=== PATIENT | male | born 1965 ===

== ENCOUNTER 2017-05-10 09:22 | Emergency (ER) | payer SELFPAY ==
[2017-05-10 09:28] VITALS: BP 118/74; PULSE 106; RESP 18; O2SAT 94
--- NOTE | 2017-05-10 10:02 | C.PDOC ---
History Of Present Illness 51 year old male presents to the emergency room complaining of dry non- productive cough, sore throat, and body aches for 4 days. No sick contacts. Patient denies fevers, chills, vomiting, or diarrhea. Not taking OTC flu/cold medicine due to concern for interference with his blood pressure medication. Time Seen by Provider: 05/10/17 09:57 Chief Complaint (Nursing): Flu-like Symptoms History Per: Patient History/Exam Limitations: no limitations Onset/Duration Of Symptoms: Days (x4) Current Symptoms Are (Timing): Still Present Sick Contacts (Context): None Past Medical History Reviewed: Historical Data, Nursing Documentation, Vital Signs Vital Signs: Last Vital Signs Temp 99.7 F H 05/10/17 10:23 Pulse 106 H 05/10/17 09:26 Resp 18 05/10/17 09:26 BP 118/74 05/10/17 09:26 Pulse Ox 94 L 05/10/17 11:10 - Medical History PMH: HTN, Sleep Apnea Surgical History: Appendectomy Family History: States: Unknown Family Hx - Social History Hx Alcohol Use: Yes Hx Substance Use: No - Immunization History Hx Tetanus Toxoid Vaccination: No Hx Influenza Vaccination: No Hx Pneumococcal Vaccination: No Review Of Systems Except As Marked, All Systems Reviewed And Found Negative. Constitutional: Positive for: Other (Body aches). Negative for: Fever, Chills ENT: Positive for: Throat Pain Respiratory: Positive for: Cough. Negative for: Shortness of Breath, Sputum Gastrointestinal: Negative for: Nausea, Vomiting, Diarrhea Physical Exam - Physical Exam Appears: Non-toxic, No Acute Distress, Other (Obese male) Skin: Normal Color, Warm, Dry Head: Atraumatic, Normacephalic Eye(s): bilateral: Normal Inspection, PERRL, EOMI Ear(s): Bilateral: Normal Nose: Normal Oral Mucosa: Moist Throat: Normal, No Erythema, No Exudate Neck: Normal ROM, Supple Chest: Symmetrical Cardiovascular: Rhythm Regular, No Murmur Respiratory: Normal Breath Sounds, No Rales, No Rhonchi, No Wheezing Extremity: Bilateral: Atraumatic, Normal Color And Temperature, Normal ROM Neurological/Psych: Oriented x3, Normal Speech ED Course And Treatment O2 Sat by Pulse Oximetry: 94 (RA) Medical Decision Making Medical Decision Making: Time: 9:31 Initial Plan: * Tylenol 975 mg PO Impression: viral syndrome, benign exam Dayquil/Nyquil educated. Pt is stable for d/c home Disposition Doctor Will See Patient In The: Office Counseled Patient/Family Regarding: Studies Performed, Diagnosis - Disposition Referrals: at [facility] [Outside] Disposition: HOME/ ROUTINE Disposition Time: 10:02 Condition: GOOD Additional Instructions: Dayquil o' Nyquil (o' equivalente) para las sintomas Sigue en la Clin[facility] Familiar adwoa necessario Instructions: Viral Syndrome (DC) Forms: [employer] (Angolan), Work Excuse Print Language: HAITIAN - POA Present On Arrival: None - Clinical Impression Clinical Impression: Influenza-like illness - Scribe Statement The provider has reviewed the documentation as recorded by the Estephaniaibedwardo Acosta Provider Attestation: All medical record entries made by the Estephaniaibedwardo were at my direction and personally dictated by me. I have reviewed the chart and agree that the record accurately reflects my personal performance of the history, physical exam, medical decision making, and the department course for this patient. I have also personally directed, reviewed, and agree with the discharge instructions and disposition.
[2017-05-10 10:23] VITALS: TEMP 99.7
== END 2017-05-10 10:24 | disposition home or self-care (01) ==
LOC: C.ER 09:22
DX: J11.1 Influenza due to unidentified influenza virus with other respiratory manifestations (principal); I10 Essential (primary) hypertension

== ENCOUNTER 2017-09-08 09:37 | Emergency (ER) | payer SELFPAY ==
[2017-09-08 09:58] VITALS: TEMP 98.3
[2017-09-08] MEDS ORDERED: Sodium Chloride 0.9% 1,000 ML IV ONE (11:08)
--- NOTE | 2017-09-08 11:16 | C.PDOC ---
History Of Present Illness 51 y/o male with history of HTN presents to ED with c/o rectal pain, left sided chest pain and dizziness since last night. Patient states symptoms woke him up and denies sob, palpitations, leg swelling, headache, numbness or any other complaints at this time. Patient is a poor historian Time Seen by Provider: 09/08/17 10:54 Chief Complaint (Nursing): Chest Pain History Per: Patient History/Exam Limitations: no limitations Onset/Duration Of Symptoms: Days Current Symptoms Are (Timing): Still Present Quality: "Pain" Past Medical History Reviewed: Historical Data, Nursing Documentation, Vital Signs Vital Signs: Last Vital Signs Temp 98.3 F 09/08/17 13:14 Pulse 73 09/08/17 13:14 Resp 18 09/08/17 13:14 BP 118/81 09/08/17 13:14 Pulse Ox 96 09/08/17 13:14 - Medical History PMH: HTN, Sleep Apnea Surgical History: Appendectomy Family History: States: No Known Family Hx - Social History Hx Alcohol Use: No Hx Substance Use: No - Immunization History Hx Tetanus Toxoid Vaccination: No Hx Influenza Vaccination: No Hx Pneumococcal Vaccination: No Review Of Systems Except As Marked, All Systems Reviewed And Found Negative. Constitutional: Negative for: Fever, Chills Cardiovascular: Positive for: Chest Pain Respiratory: Negative for: Shortness of Breath Gastrointestinal: Positive for: Rectal Pain Skin: Negative for: Rash Neurological: Positive for: Dizziness. Negative for: Weakness, Numbness, Headache Physical Exam - Physical Exam Appears: Non-toxic, No Acute Distress Skin: Warm, Dry, No Rash Head: Atraumatic, Normacephalic Eye(s): bilateral: Normal Inspection Oral Mucosa: Moist Neck: Normal ROM, Supple Chest: Symmetrical Cardiovascular: Rhythm Regular Respiratory: Normal Breath Sounds, No Rales, No Rhonchi, No Wheezing Gastrointestinal/Abdominal: Soft, No Tenderness, No Guarding, No Rebound Extremity: No Pedal Edema, Capillary Refill (<2 seconds ) Neurological/Psych: Oriented x3, Normal Speech ED Course And Treatment - Laboratory Results Result Diagrams: 09/08/17 11:49 09/08/17 11:49 ECG: Interpreted By Me, Viewed By Me ECG Rhythm: Sinus Rhythm Rate From EC (BPM) O2 Sat by Pulse Oximetry: 99 (RA) Medical Decision Making Medical Decision Making: cp/abd pain/near syncope labs imaging pending pt reassesed symptoms resolved. requested pt to be obs, however leonard, discussed case with pmd dr small agrees to see pt outpt. pt updated. agrees to f/u outpt . Disposition - Disposition Referrals: [facility] [Outside] [facility] [Outside] Adriano العراقي MD [Staff Provider] - Dashawn Cooley MD [Staff Provider] - Disposition: HOME/ ROUTINE Disposition Time: 01:00 Condition: STABLE Additional Instructions: you are declining observation in the hospital. you should follow up with your pmd. return to er with worsening symptosm or concerns. Instructions: Chest Pain, Acute Abdomen (Belly Pain), Dizziness, Nonvertigo, ( DC), Near Fainting Forms: [employer] (Korean) Print Language: KINYARWANDA - Clinical Impression Clinical Impression: Chest pain, Abdominal pain, Near syncope - Scribe Statement The provider has reviewed the documentation as recorded by the Gloria Hernandez All medical record entries made by the Estephaniaibedwardo were at my direction and personally dictated by me. I have reviewed the chart and agree that the record accurately reflects my personal performance of the history, physical exam, medical decision making, and the department course for this patient. I have also personally directed, reviewed, and agree with the discharge instructions and disposition.
--- NOTE | 2017-09-08 11:46 | RAD ---
Date of service: 09/08/2017 PROCEDURE: CHEST RADIOGRAPH, 1 VIEW HISTORY: chest pain COMPARISON: Chest radiograph dated 10/12/2014 FINDINGS: LUNGS: Clear. PLEURA: No pneumothorax or pleural fluid seen. CARDIOVASCULAR: Normal. OSSEOUS STRUCTURES: No significant abnormalities. VISUALIZED UPPER ABDOMEN: Normal. OTHER FINDINGS: None. IMPRESSION: No active disease.
[2017-09-08 11:59] LABS: BASO # 0.1 K/uL (0.0-0.2); BASO % 0.8 % (0.0-2.0); EOS # 0.2 K/uL (0.0-0.7); EOS % 2.6 % (0.0-4.0); LYMPH # 3.2 K/uL (1.0-4.3); MEAN CELL VOLUME 92.4 fL (80.0-94.0); MEAN CORPUSCULAR HEMOGLOBIN 32.2 pg (27.0-31.0); MEAN CORPUSCULAR HGB CONC 34.9 g/dL (33.0-37.0); MEAN PLATELET VOLUME 8.4 fL (7.2-11.7); NEUT # 4.4 K/uL (1.8-7.0); NEUT % 49.6 % (50.0-75.0); NRBC % 0.1 % (0.0-2.0); RBC 4.67 Mil/uL (4.40-5.90); RED CELL DISTRIBUTION WIDTH 13.1 % (11.5-14.5); WHITE BLOOD COUNT 8.9 K/uL (4.8-10.8)
[2017-09-08 12:10] LABS: INR 1.1; PROTHROMBIN TIME 11.5 SECONDS (9.7-12.2)
[2017-09-08 12:13] LABS: ALB/GLOB RATIO 1.4 (1.0-2.1); ALBUMIN 4.7 g/dL (3.5-5.0); ALT/SGPT 70 U/L (21-72); AST/SGOT 57 U/L (17-59); BLOOD UREA NITROGEN 9 mg/dL (9-20); CALCIUM 9.3 mg/dl (8.6-10.4); GFR AFRICAN-AMERICAN > 60; GFR NON-AFRICAN AMERICAN > 60; LIPASE 137 U/L (23-300)
[2017-09-08 12:14] LABS: URINE BACTERIA RARE (<OCC); URINE BILIRUBIN NEGATIVE (NEGATIVE); URINE BLOOD NEGATIVE (NEGATIVE); URINE CLARITY Clear (Clear); URINE COLOR Yellow (YELLOW); URINE GLUCOSE (UA) 1+ mg/dL (Normal); URINE LEUKOCYTE ESTERASE 1+ Leu/uL (Negative); URINE PROTEIN NEGATIVE (NEGATIVE); URINE UROBILINOGEN NORMAL mg/dL (0.2-1.0)
--- NOTE | 2017-09-08 12:33 | CT ---
Date of service: 09/08/2017 PROCEDURE: CT HEAD WITHOUT CONTRAST. HISTORY: dizziness/near syncope COMPARISON: CT head dated 10/12/2014. TECHNIQUE: Axial computed tomography images were obtained through the head/brain without intravenous contrast. Radiation dose: Total exam DLP = 932.1 mGy-cm. This CT exam was performed using one or more of the following dose reduction techniques: Automated exposure control, adjustment of the mA and/or kV according to patient size, and/or use of iterative reconstruction technique. FINDINGS: HEMORRHAGE: No intracranial hemorrhage. BRAIN: No mass effect or edema. No atrophy or chronic microvascular ischemic changes. VENTRICLES: Unremarkable. No hydrocephalus. CALVARIUM: Unremarkable. PARANASAL SINUSES: Unremarkable as visualized. No significant inflammatory changes. MASTOID AIR CELLS: Unremarkable as visualized. No inflammatory changes. OTHER FINDINGS: None. IMPRESSION: No acute intracranial pathology.
--- NOTE | 2017-09-08 12:54 | CT ---
Date of service: 09/08/2017 PROCEDURE: CT Abdomen and Pelvis without intravenous contrast HISTORY: rectal pain COMPARISON: CT scan of the abdomen pelvis dated 06/30/2015. TECHNIQUE: Contiguous images were obtained from the domes of the diaphragms to the upper thighs without the administration of intravenous contrast. Oral contrast was not administered. Radiation dose: Total exam DLP = 1116.4 mGy-cm. This CT exam was performed using one or more of the following dose reduction techniques: Automated exposure control, adjustment of the mA and/or kV according to patient size, and/or use of iterative reconstruction technique. FINDINGS: LOWER THORAX: 4 mm peripheral left lower lobe nodule. 4 mm left lower lobe subpleural nodule. No focal consolidation or pleural effusion. Heart size normal. LIVER: Diffuse hepatic steatosis with area focal fatty sparing adjacent to the samuel hepatis. No gross lesion or ductal dilatation. GALLBLADDER AND BILE DUCTS: Unremarkable. PANCREAS: Unremarkable. No gross lesion or ductal dilatation. SPLEEN: Unremarkable. ADRENALS: Unremarkable. No mass. KIDNEYS AND URETERS: Unremarkable. No hydronephrosis. No solid mass. VASCULATURE: Unremarkable. No aortic aneurysm. BOWEL: Unremarkable. No obstruction. No gross mural thickening. APPENDIX: No findings to suggest acute appendicitis. PERITONEUM: 2.0 cm fat density ovoid structure with hyperdense rim in the left lower quadrant (series 3, image 102). No free fluid. No free air. LYMPH NODES: Unremarkable. No enlarged lymph nodes. BLADDER: Unremarkable. REPRODUCTIVE: Unremarkable. BONES: No acute fracture. OTHER FINDINGS: None. IMPRESSION: Left lower quadrant epiploic appendagitis. Left lower lobe 4 mm pulmonary nodules. Twelve month CT follow-up can be obtained in high-risk patient.
[2017-09-08 13:14] VITALS: BP 118/81; PULSE 73; RESP 18
--- NOTE | 2017-09-09 11:47 | CARD ---
APPROVED REPORT Date of service: 09/08/2017 EKG Measurement Heart [id number] <Conclusion> Normal sinus rhythm Normal ECG
[2017-09-10 19:11] VITALS: O2SAT 99
== END 2017-09-08 13:44 | disposition home or self-care (01) ==
LOC: C.ER 09:37
DX: R07.9 Chest pain, unspecified (principal); R10.9 Unspecified abdominal pain; R55 Syncope and collapse
CPT/HCPCS: 70450; 71045; 74176; 80053; 81001; 83690; 84484; 85025; 85610; 85730; 93005; 96360; 99284; J7030